=== PATIENT | male | born 1975 | race Caucasian/White ===

== ENCOUNTER 2018-11-20 21:53 | Emergency (ER) | payer SELFPAY ==
[~2018-11-20] VITALS: Ht 167.6 cm; Wt 69.0 kg
[2018-11-20] MEDS ORDERED: HYDROCODONE/ACETAMINOPHEN 5/325MG TABLET PO ONE (22:45)
[2018-11-20] MEDS ORDERED: TETANUS, DIPHTHERIA, PERTUSSIS VAC/PF 0.5ML (>7YR OLD) IM ONE (23:30)
[2018-11-21 00:36] VITALS: BP 154/71
== END 2018-11-21 00:37 | disposition home or self-care (01) ==
LOC: ER 21:53
DX: S01.81XA Laceration without foreign body of other part of head, initial encounter (principal); S01.01XA Laceration without foreign body of scalp, initial encounter; Y08.89XA Assault by other specified means, initial encounter; Y93.89 Activity, other specified; Y92.89 Other specified places as the place of occurrence of the external cause; Y99.8 Other external cause status
CPT/HCPCS: 12001; 12011; 90471; 90715; 99284; Z7610

== ENCOUNTER 2021-07-17 02:35 | Inpatient (IN) | payer MEDICAID ==
[2021-07-17] VITALS (9 sets, daily range): BP systolic 112–150; BP diastolic 68–96
[~2021-07-17] VITALS: Ht 167.6 cm; Wt 74.4 kg
[2021-07-17] MEDS ORDERED: DEXTROSE 50% WATER 50ML SYRINGE IV ONE ×2 (03:15→07:15)
[2021-07-17] MEDS ORDERED: SODIUM CHLORIDE 0.9% 1,000 ML IV ONE (03:15)
[2021-07-17 03:33] LABS: CHLORIDE 111 mEq/L (98-107)
[2021-07-17 03:38] LABS: ETHANOL BLOOD < 10 mg/dL
[2021-07-17 03:42] LABS: CREATINE KINASE 213 IU/L (39-308)
[2021-07-17 03:43] LABS: HEMATOCRIT. 28.5 % (42.0-52.0); HEMOGLOBIN. 9.1 g/dL (14.0-18.0); MEAN CORPUSCULAR HEMOGLOBIN 24.4 pg (28.0-32.0); MEAN CORPUSCULAR VOLUME 76.2 fL (80.0-94.0); MEAN PLATELET VOLUME 7.7 fl (7.4-10.4); PLATELET 108 x1000/uL (130-400); RED BLOOD CELL COUNT 3.74 mill/uL (4.7-6.1); RED CELL DISTRIBUTION WIDTH 20.3 % (11.6-14.6)
[2021-07-17 04:20] LABS: PLATELET ESTIMATE DECREASED
[2021-07-17] MEDS ORDERED: LACTULOSE 300 ML in WATER FOR IRRIGATION,STERILE 700 ML PR NR (04:30)
[2021-07-17 04:39] LABS: CLARITY URINE CLEAR (CLEAR); COLOR URINE DARK YELLOW (YELLOW); KETONES URINE NEGATIVE (NEGATIVE); LEUKOCYTE ESTERASE URINE TRACE (NEGATIVE); NITRITE URINE NEGATIVE (NEGATIVE); OCCULT BLOOD URINE NEGATIVE (NEGATIVE); PROTEIN URINE NEGATIVE (NEGATIVE); SPECIFIC GRAVITY URINE 1.019 (1.005-1.030)
[2021-07-17 05:22] LABS: *AMPHETAMINES SCREEN URINE NEGATIVE (NEGATIVE); *BARBITURATES SCREEN URINE NEGATIVE (NEGATIVE); *BENZODIAZEPINES SCREEN URINE NEGATIVE (NEGATIVE); *COCAINE SCREEN URINE NEGATIVE (NEGATIVE); METHADONE URINE SCREEN NEGATIVE (NEGATIVE)
[2021-07-17 05:23] LABS: CANNABINOID URINE SCREEN NEGATIVE (NEGATIVE); OPIATES URINE SCREEN PRESUMTIVE POSITIVE (NEGATIVE); PHENCYCLIDINE URINE SCREEN NEGATIVE (NEGATIVE)
[2021-07-17] MEDS ORDERED: ACETAMINOPHEN 325MG TABLET PO PRN ×2 (07:30)
[2021-07-17] MEDS ORDERED: ENOXAPARIN 40MG/0.4ML SYR SUBCUT SCH (07:30)
[2021-07-17] MEDS ORDERED: DOCUSATE SODIUM 100MG CAPSULE PO PRN (07:30)
[2021-07-17] MEDS ORDERED: CLONIDINE 0.1MG TABLET PO PRN (07:30)
[2021-07-17] MEDS ORDERED: GUAIFENESIN 200MG/10ML SUGAR FREE UDC PO PRN (07:30)
[2021-07-17] MEDS ORDERED: NITROGLYCERIN 0.4MG TABLET SL SL PRN (07:30)
[2021-07-17] MEDS ORDERED: MAGNESIUM/ALUMINUM HYDROXIDE/SIMETHICONE 30ML UDC PO PRN (07:30)
[2021-07-17] MEDS ORDERED: IPRATROPIUM/ALBUTEROL 0.5-3(2.5)MG/3ML NEB NEB PRN (07:30)
[2021-07-17] MEDS: LACTULOSE 20G/30ML UDC PO SCH ×6 (08:00→20:29)
[2021-07-17] MEDS: BLOOD SUGAR DIAGNOSTIC STRIP TEST SCH ×4 (08:19→20:29)
[2021-07-17 09:31] LABS: TOTAL IRON BINDING CAPACITY 199 ug/dL (250-450)
[2021-07-17 09:44] LABS: FOLIC ACID (FOLATE) SERUM >20 ng/mL ng/mL (>5.38)
[2021-07-17 09:56] LABS: VITAMIN B12 SERUM >2000 pg/mL pg/mL (211-911)
[2021-07-17] MEDS ORDERED: IOHEXOL-300 100 ML BOTTLE ONE (10:09)
[2021-07-17] MEDS: ENOXAPARIN 30MG/0.3ML SYR SUBCUT SCH (13:35)
[2021-07-17] MEDS: DEXTROSE 50% WATER 50ML SYRINGE IV PRN ×2 (13:35→20:28)
[2021-07-17] MEDS: DEXT 5%/0.45% NACL 1000ML 1,000 ML IV SCH ×3 (13:36→20:30)
[2021-07-17] MEDS: FAMOTIDINE 20MG TABLET PO SCH ×2 (13:38→20:29)
[2021-07-17] MEDS: ONDANSETRON HCL 4MG/2ML INJ IV PRN (15:38)
[2021-07-17] MEDS ORDERED: IMOD GT (17:18)
[2021-07-17] MEDS ORDERED: MORP15TA67 PO (17:18)
[2021-07-17] MEDS ORDERED: GABA300C PO (17:18)
[2021-07-17] MEDS ORDERED: DULO30CA2 MT (17:18)
[2021-07-17] MEDS ORDERED: DOCU-138 PO (17:18)
[2021-07-17] MEDS ORDERED: BISA-81 PO (17:18)
[2021-07-17 18:00] LABS: CREATINE KINASE 286 IU/L (39-308)
[2021-07-17] MEDS ORDERED: MORPHINE SULFATE 2 MG/ML CPJ (NOT FOR IM USE) IV PRN (18:00)
[2021-07-17 18:01] LABS: CREATINE KINASE MB FRACTION 4.9 ng/mL (0.5-3.6)
[2021-07-18] VITALS (12 sets, daily range): BP systolic 85–112; BP diastolic 59–79
[2021-07-18] MEDS: LACTULOSE 20G/30ML UDC PO SCH ×6 (00:30→20:32)
[2021-07-18 00:47] LABS: CREATINE KINASE 348 IU/L (39-308)
[2021-07-18 00:48] LABS: CREATINE KINASE MB FRACTION 5.7 ng/mL (0.5-3.6)
[2021-07-18] MEDS: DEXT 5%/0.45% NACL 1000ML 1,000 ML IV SCH ×3 (04:05→17:22)
[2021-07-18 07:12] LABS: HEMOGLOBIN. 7.9 g/dL (14.0-18.0); MEAN CORPUSCULAR HEMOGLOBIN 23.9 pg (28.0-32.0); RED BLOOD CELL COUNT 3.29 mill/uL (4.7-6.1); RED CELL DISTRIBUTION WIDTH 20.8 % (11.6-14.6)
[2021-07-18 07:23] LABS: CHLORIDE 114 mEq/L (98-107)
[2021-07-18] MEDS: BLOOD SUGAR DIAGNOSTIC STRIP TEST SCH ×4 (07:30→20:35)
[2021-07-18 07:38] LABS: PHOSPHORUS 5.2 mg/dL (2.5-4.9)
[2021-07-18] MEDS: ENOXAPARIN 30MG/0.3ML SYR SUBCUT SCH (09:17)
[2021-07-18] MEDS: FAMOTIDINE 20MG TABLET PO SCH ×2 (09:17→20:35)
[2021-07-18] MEDS: ONDANSETRON HCL 4MG/2ML INJ IV PRN (09:49)
[2021-07-18 10:35] LABS: PLATELET ESTIMATE DECREASED
[2021-07-18 10:36] LABS: MEAN PLATELET VOLUME 8.3 fl (7.4-10.4)
[2021-07-18 10:37] LABS: PLATELET 80 x1000/uL (130-400)
[2021-07-18] MEDS ORDERED: NALOXONE HCL 0.4MG/ML VIAL IV PRN (22:30)
[2021-07-19] VITALS (12 sets, daily range): BP systolic 93–127; BP diastolic 59–84
[2021-07-19] MEDS: DEXT 5%/0.45% NACL 1000ML 1,000 ML IV SCH ×4 (00:10→20:47)
[2021-07-19] MEDS: LACTULOSE 20G/30ML UDC PO SCH ×7 (00:10→23:44)
[2021-07-19] MEDS: BLOOD SUGAR DIAGNOSTIC STRIP TEST SCH ×4 (07:30→21:00)
[2021-07-19] MEDS: FAMOTIDINE 20MG TABLET PO SCH ×2 (09:01→20:47)
[2021-07-19] MEDS: ENOXAPARIN 30MG/0.3ML SYR SUBCUT SCH (09:01)
[2021-07-19] MEDS: DEXTROSE 50% WATER 50ML SYRINGE IV PRN ×2 (09:06→20:47)
[2021-07-19 16:27] LABS: HEMATOCRIT. 23.8 % (42.0-52.0); HEMOGLOBIN. 7.5 g/dL (14.0-18.0); MEAN CORPUSCULAR HEMOGLOBIN 23.8 pg (28.0-32.0); MEAN CORPUSCULAR VOLUME 75.4 fL (80.0-94.0); MEAN PLATELET VOLUME 8.2 fl (7.4-10.4); PLATELET 62 x1000/uL (130-400); RED BLOOD CELL COUNT 3.15 mill/uL (4.7-6.1); RED CELL DISTRIBUTION WIDTH 20.9 % (11.6-14.6)
[2021-07-19 16:59] LABS: CHLORIDE 113 mEq/L (98-107)
[2021-07-19 18:05] LABS: PLATELET ESTIMATE DECREASED
[2021-07-20] VITALS (7 sets, daily range): BP systolic 93–119; BP diastolic 61–76
[2021-07-20] MEDS: DEXT 5%/0.45% NACL 1000ML 1,000 ML IV SCH ×2 (03:55→09:20)
[2021-07-20] MEDS: LACTULOSE 20G/30ML UDC PO SCH ×2 (03:55→08:26)
[2021-07-20] MEDS: DEXTROSE 50% WATER 50ML SYRINGE IV PRN ×2 (08:05→08:30)
[2021-07-20] MEDS: BLOOD SUGAR DIAGNOSTIC STRIP TEST SCH (08:13)
[2021-07-20] MEDS: FAMOTIDINE 20MG TABLET PO SCH (08:26)
[2021-07-20] MEDS: ENOXAPARIN 30MG/0.3ML SYR SUBCUT SCH (09:00)
== END 2021-07-20 11:50 | disposition home or self-care (01) | DRG 52 ==
LOC: ER 02:35 → MICUSO 04:43 → EDBD 04:43 → 5EST 10:33
PROVIDERS: ADMIT Internal Medicine; ATTEND Internal Medicine
DX: G92.8 Other toxic encephalopathy (principal); E43 Unspecified severe protein-calorie malnutrition; L89.320 Pressure ulcer of left buttock, unstageable; L89.154 Pressure ulcer of sacral region, stage 4; K72.90 Hepatic failure, unspecified without coma; D63.8 Anemia in other chronic diseases classified elsewhere; E83.51 Hypocalcemia; C78.7 Secondary malignant neoplasm of liver and intrahepatic bile duct; E16.2 Hypoglycemia, unspecified; K80.20 Calculus of gallbladder without cholecystitis without obstruction; Z20.822 Contact with and (suspected) exposure to COVID-19; R74.01 Elevation of levels of liver transaminase levels; Z85.038 Personal history of other malignant neoplasm of large intestine; Z92.21 Personal history of antineoplastic chemotherapy; Z79.899 Other long term (current) drug therapy; Z68.26 Body mass index [BMI] 26.0-26.9, adult
CPT/HCPCS: 36415; 71045; 74177; 80048; 80053; 80305; 80320; 81003; 82140; 82550; 82553; 82607; 82746; 82962; 83036; 83540; 83550; 83605; 83735; 83880; 84100; 84145; 84443; 84484; 85025; 87426; 87493; 93005; 93970; 97163; 97166; 99285; J1650; J2270; J2405; J7030; Q9967; G0480